=== PATIENT | female | born 1985 | race Caucasian/White ===

== ENCOUNTER 2023-02-13 18:57 | Emergency (ER) | payer MEDICAID, OTHER ==
[~2023-02-13] VITALS: Ht 162.6 cm; Wt 61.0 kg
[2023-02-13 18:57] VITALS: BP 125/71
[2023-02-13] MEDS ORDERED: TETRACAINE HCL 0.5% OPTH(EYE) SOLN 4ML LEFTEYE ONE (20:15)
== END 2023-02-14 00:14 | disposition home or self-care (01) ==
LOC: ER 18:57
DX: H57.04 Mydriasis (principal); R51.9 Headache, unspecified